=== PATIENT | female | born 1940 | race Caucasian/White ===

== ENCOUNTER 2017-01-31 09:02 | Observation (INO) | payer OTHER ==
[~2017-01-31] VITALS: Ht 149.9 cm; Wt 109.6 kg
--- NOTE | ~2017-01-31 | P ---
[facility] [place] [address] PROCEDURE REPORT Name: TAHIRAIGNACIA Room #: REG [facility]#: [id number] Admission: 01/31/17 Attend Phys: Rasheed Castillo MD Discharge: Date of : 42 Report #: [id number] THIS REPORT FOR: //name// CC: HERLINDA Castillo DATE OF SERVICE: 01/31/2017 DATE OF SERVICE: 01/31/2017 PREOPERATIVE DIAGNOSES: 1. Sick sinus syndrome. 2. Symptomatic bradycardia. POSTOPERATIVE DIAGNOSIS: 1. Sick sinus syndrome. 2. Symptomatic bradycardia. PROCEDURE PERFORMED: CPT codes 20942 and 47921. HISTORY: The patient is felt is a 76-year-old with a history of symptomatic bradycardia despite stopping beta blockers, who is here for dual chamber pacemaker implantation. ANESTHESIA: The patient underwent MAC anesthesia with no anesthesia related complications. DESCRIPTION OF PROCEDURE: The patient underwent informed consent. We discussed the details of the procedure including the risks, which include but not limited to bleeding, infection, vascular damage, cardiac perforation, pneumothorax. She understood these risks and is willing to proceed. As such, she was brought to the EP laboratory in a fasting and sedated state and prepped and draped in sterile fashion. She was sedated by the anesthesiology service. She received IV antibiotics and underwent a venogram showing patency of left axillary vein. Next, I injected 20 mL of lidocaine below the level of left clavicle. Incision was made. A pocket was created over the prepectoral fascia. Access was obtained twice to the left axillary vein using the extrathoracic approach. Leads were positioned in the right atrial appendage and right ventricular apex, both with adequate pacing and sensing thresholds. The leads were sutured to the prepectoral fascia and the device was connected and placed in the pocket. The pocket was irrigated with vancomycin and the pocket was closed in 3 layers and surgical glue was placed to the outer skin layer. The patient awoke neurologically and hemodynamically intact with no complications and no significant bleeding. The implanted pacemaker is [employer] model #LW3730, serial #[id number]. [facility] [address] [place] [address] PROCEDURE REPORT Name: IGNACIA HOFFMANN [id number] Admission: 01/31/17 Attend Phys: Rasheed Castillo MD Discharge: Date of : 42 Report #: [id number] Atrial lead was a [employer] model #2088TC, 52 cm, serial #[id number] with a P-wave of 3.6 millivolts, pacing impedance of 390 ohms and the pacing threshold 0.75 volts at 0.4 milliseconds. The RV lead was a [employer] model #2088TC, 58 cm, serial #[id number]. This lead demonstrated a R-wave of 2.2 millivolts, pacing impedance of 890 ohms and the pacing threshold 0.5 volts at 0.4 milliseconds. The device was programmed to DDDR 60-130 mode. CONCLUSIONS: 1. Successful dual-chamber pacemaker implantation. 2. Satisfactory atrial and ventricular pacing and sensing thresholds. By: [id number] Rasheed Castillo MD /nt
[~2017-01-31 09:02] MED LIST: GUMMI BEAR MUL1 EAC1 PO; HYDROCHLOROTHIA25 M2 PO; LEVOTHYROXINE0.05 MG PO; ZESTRIL40 MG PO
[2017-01-31] MEDS ORDERED: ALL DAY ALLERGY10 M3 PO (09:16)
[2017-01-31] MEDS ORDERED: OXYBUTYNIN 5 MG5 M2 PO (09:17)
[2017-01-31] MEDS ORDERED: IRON325 PO (09:18)
[2017-01-31 09:25] VITALS: BP 168/83
[2017-01-31 09:45] LABS: ABSOLUTE NEUTROPHILS 2.8 thou/uL (1.4-8.2); BASOPHILS 0.7 % (0.0-2.0); EOSINOPHILS 2.2 % (0.0-3.0); HEMATOCRIT 37.3 % (37.0-47.0); HEMOGLOBIN 12.2 gm/dL (12.0-15.0); LYMPHOCYTES 30.9 % (24.0-44.0); MCH 30.1 pg (26.0-34.0); MCHC 32.8 g/dL (28.0-37.0); MCV 91.9 fL (80.0-100.0); MONOCYTES 9.4 % (1.0-8.0); PLATELET COUNT 211 thou/uL (150-400); POLYS 56.8 % (36.0-66.0); RBC 4.05 mil/uL (4.20-5.00); RDW 13.2 % (10.5-14.5)
[2017-01-31 09:52] LABS: MANUAL DIFF NO
[2017-01-31 09:57] LABS: CALCIUM 9.2 mg/dL (8.5-10.1); CREATININE 1.3 mg/dL (0.6-1.0); POTASSIUM 4.7 mmol/L (3.5-5.1)
[2017-01-31 09:59] LABS: APTT 26.1 Seconds (24.5-32.8); PROTIME 10.3 Seconds (9.3-11.4)
[2017-01-31 10:03] LABS: ALBUMIN 3.8 g/dL (3.4-5.0); TOTAL BILIRUBIN 0.6 mg/dL (<0.1-1.0); TOTAL PROTEIN 7.5 g/dL (6.4-8.2)
[2017-01-31 15:33] VITALS: BP 148/70
[2017-01-31 19:49] VITALS: BP 184/99
[2017-01-31 23:31] VITALS: BP 130/72
[2017-02-01 04:14] VITALS: BP 145/71
[2017-02-01 07:30] VITALS: BP 154/82
[2017-02-01 10:27] VITALS: BP 154/82
== END 2017-02-01 12:20 | disposition home or self-care (01) ==
LOC: CATH 09:02 → 2N 12:37 → CATH 13:47 → ENTRNSPT 02-01 12:07 → EDTRNSPTSTS 02-01 12:09 → 2N 02-01 12:20
PROVIDERS: Internal Medicine Cardiovascular Disease
DX: I49.5 Sick sinus syndrome (principal); R00.1 Bradycardia, unspecified; I12.9 Hypertensive chronic kidney disease with stage 1 through stage 4 chronic kidney disease, or unspecified chronic kidney disease; N18.9 Chronic kidney disease, unspecified; E03.9 Hypothyroidism, unspecified
CPT/HCPCS: 62110; 62900; 70005